=== PATIENT | female | born 1980 | race Caucasian/White ===

== ENCOUNTER 2017-10-31 11:57 | Emergency (ER) | payer MEDICAID ==
[~2017-10-31] VITALS: Ht 170.2 cm; Wt 75.2 kg
[2017-10-31] MEDS ORDERED: IBUP200C8 PO (12:50)
[2017-10-31 13:01] LABS: BASOPHILS # (AUTO) 0.07 x10^3/uL (0-0.1); BASOPHILS % (AUTO) 1 % (0-1); EOSINOPHILS # (AUTO) 0.14 x10^3/uL (0-0.4); EOSINOPHILS % (AUTO) 2 % (1-7); HCT (SEDRATE) 42.1 % (34.6-47.8); LYMPHOCYTES # (AUTO) 2.03 x10^3/uL (1-3.4); LYMPHOCYTES % (AUTO) 36 % (22-44); MD NO; MEAN CORPUSCULAR HEMOGLOBIN 31.9 pg (27.0-34.8); MEAN CORPUSCULAR HGB CONC 33.9 g/dL (32.4-35.8); MEAN CORPUSCULAR VOLUME 94.2 fL (80-100); MEAN PLATELET VOLUME 8.2 fL (7.4-10.4); MONOCYTES % (AUTO) 7 % (2-9); NEUTROPHILS # (AUTO) 3.04 x10^3/uL (1.8-6.8); NEUTROPHILS % (AUTO) 54 % (42-75); PLATELET COUNT 258 x10^3/uL (130-400); RED BLOOD COUNT 4.47 x10^6/uL (3.82-5.3); RED CELL DISTRIBUTION WIDTH 12.5 % (9.6-15.2)
[2017-10-31 13:12] LABS: MICROSCOPIC NOT IND
[2017-10-31 13:12] LABS: ANION GAP 6 mmol/L (5-15); CHLORIDE 108 mmol/L (98-107); CREATININE 0.66 mg/dL (0.55-1.02)
[2017-10-31 13:16] LABS: CULTURE INDICATED? NO
[2017-10-31] MEDS ORDERED: SODIUM CHLORIDE 0.9% 1,000ML IVBOLUS ONE (13:30)
[2017-10-31] MEDS ORDERED: DEXAMETHASONE 4 MG/ML, 1ML IVPush ONE (13:30)
[2017-10-31] MEDS ORDERED: METOCLOPRAMIDE 5 MG/ML, 2ML IVPush ONE (13:30)
[2017-10-31] MEDS ORDERED: DEXAMETHASONE 4 MG/ML, 5ML ONE (13:40)
[2017-10-31] MEDS ORDERED: METOCLOPRAMIDE 5 MG/ML, 2ML ONE (13:40)
[2017-10-31 13:55] VITALS: BP 113/76
== END 2017-10-31 15:27 | disposition home or self-care (01) ==
LOC: ED 14:51
DX: R51 Headache (principal); R11.0 Nausea
CPT/HCPCS: 36415; 70450; 80048; 81003; 82040; 84703; 85025; 85651; 96374; 96375; 99285; J1100; J2765; J7030

== ENCOUNTER 2018-05-26 17:57 | Emergency (ER) | payer MEDICAID ==
[~2018-05-26] VITALS: Ht 170.2 cm; Wt 74.7 kg
[~2018-05-26 17:57] MED LIST: IBUP200C8 PO
--- NOTE | 2018-05-26 18:38 | NUR ---
Dr. Holland at bedside to evaluate pt.
[2018-05-26] MEDS ORDERED: ALBUTEROL SULFATE 2.5 MG/3 ML ONE (18:57)
[2018-05-26] MEDS ORDERED: KETOROLAC 30 MG/1 ML IM ONE (19:00)
[2018-05-26] MEDS ORDERED: ALBUTEROL SULFATE 2.5 MG/3 ML NPPB ONE (19:00)
[2018-05-26 19:08] LABS: BASOPHILS # (AUTO) 0.07 x10^3/uL (0-0.1); BASOPHILS % (AUTO) 1 % (0-1); EOSINOPHILS # (AUTO) 0.12 x10^3/uL (0-0.4); EOSINOPHILS % (AUTO) 2 % (1-7); LYMPHOCYTES # (AUTO) 2.08 x10^3/uL (1-3.4); LYMPHOCYTES % (AUTO) 28 % (22-44); MD NO; MEAN CORPUSCULAR HEMOGLOBIN 31.7 pg (27.0-34.8); MEAN CORPUSCULAR HGB CONC 34.4 g/dL (32.4-35.8); MEAN CORPUSCULAR VOLUME 92.2 fL (80-100); MEAN PLATELET VOLUME 8.5 fL (7.4-10.4); MONOCYTES # (AUTO) 0.68 x10^3/uL (0.2-0.8); MONOCYTES % (AUTO) 9 % (2-9); NEUTROPHILS % (AUTO) 60 % (42-75); PLATELET COUNT 301 x10^3/uL (130-400); RED BLOOD COUNT 4.52 x10^6/uL (3.82-5.3); RED CELL DISTRIBUTION WIDTH 12.4 % (9.6-15.2)
[2018-05-26] MEDS ORDERED: KETOROLAC 30 MG/1 ML ONE (19:10)
[2018-05-26 19:13] LABS: ALBUMIN 3.9 g/dL (3.4-5.0); ANION GAP 9 mmol/L (5-15); CALCIUM 9.2 mg/dL (8.5-10.1); CHLORIDE 109 mmol/L (98-107); CREATININE 0.73 mg/dL (0.55-1.02)
--- NOTE | 2018-05-26 19:15 | NUR ---
pt medicated per emar. pt tolerated well. pt aox4. resps even and unlabored.
[2018-05-26 20:34] VITALS: BP 100/55
--- NOTE | 2018-05-26 20:34 | NUR ---
pt resting in [facility]. pt states pt's pain level reduced to 1/10 at this time. pt aox4. resps even and unlabored. bp/spo2 monitors in place. call light within reach.
--- NOTE | 2018-05-26 20:52 | NUR ---
PRECEPTOR NOTE: PT REPORTS PAIN IMPROVED S/P TORADOL. PT A&O, RESPS EVEN AND UNLABORED. NADN. ALL RESULTS BACK, CHART UP FOR RECHECK. AWAITING MD AND DISPO.
--- NOTE | 2018-05-26 21:35 | NUR ---
pt given dc instructions and scripts. pt educated regarding dc medications which are albuterol and medrol. pt amb to dc with steady gait. pt aox4. resps even and unlabored. pt's pain level reduced at dc. no acute distress at dc.
== END 2018-05-26 21:36 | disposition home or self-care (01) ==
LOC: ED 18:32
DX: J20.8 Acute bronchitis due to other specified organisms (principal); B34.9 Viral infection, unspecified; Z90.49 Acquired absence of other specified parts of digestive tract; Z98.51 Tubal ligation status; Z98.890 Other specified postprocedural states
CPT/HCPCS: 36415; 71045; 80048; 82040; 85025; 93005; 94640; 96372; 99284; J1885; J7613

== ENCOUNTER 2019-07-17 05:27 | Emergency (ER) | payer MEDICAID ==
[~2019-07-17] VITALS: Ht 172.7 cm; Wt 76.9 kg
[2019-07-17 05:30] VITALS: BP 129/84
[2019-07-17] MEDS ORDERED: PHENAZOPYRIDINE 200 MG TABLET ONE (05:47)
--- NOTE | 2019-07-17 05:57 | NUR ---
Pt alert, oriented and resting on gurney. NAD. Pt medicated per JUN. Pt urine sent. Call light within reach.
[2019-07-17] MEDS ORDERED: DIPH25TA65 PO (05:58)
[2019-07-17] MEDS ORDERED: PHENAZOPYRIDINE 200 MG TABLET PO ONE (06:00)
[2019-07-17 06:08] LABS: HCG UR SG 1.007 (1.003-1.030)
[2019-07-17 06:10] LABS: CULTURE INDICATED? YES; MICROSCOPIC INDICATED
--- NOTE | 2019-07-17 06:42 | NUR ---
Pt d/c'd to home care. Pt alert, oriented and ambulatory. NAD. Pt educated on prescription, home care, OTC meds, follow-up and S/Sx to return. Pt VU. Pt ambulated out of ER.
== END 2019-07-17 06:44 | disposition home or self-care (01) ==
LOC: ED 06:30
DX: N39.0 Urinary tract infection, site not specified (principal); R30.0 Dysuria
CPT/HCPCS: 81001; 81025; 87077; 87086; 87186; 99283